=== PATIENT | female | born 1950 | race Caucasian/White ===

== ENCOUNTER 2016-09-03 10:50 | Emergency (ER) | payer OTHER ==
[~2016-09-03] VITALS: Ht 162.6 cm; Wt 62.0 kg
[~2016-09-03 10:50] MED LIST: ATOR40TA49 PO
[2016-09-03 10:56] VITALS: BP 124/69; PULSE 90; RESP 20; TEMP 98; O2SAT 94
[2016-09-03] MEDS ORDERED: AMOXICILLIN/CLAVULANATE K 875 MG TAB PO ONE (13:00)
[2016-09-03] MEDS ORDERED: LIDOCAINE 1%/EPINEPHrine 1:100,000 SOLN 20 ML VIAL INFIL ONE (13:00)
[2016-09-03] MEDS ORDERED: TETANUS/DIPHTHERIA TOXOID ADULT 0.5 ML VIAL IM ONE (13:00)
--- NOTE | 2016-09-03 13:05 | PD ---
HPI Chief Complaint: Bite or Sting Time Seen by Provider: 13:02 Travel History International Travel<30 days: No Contact w/Intl Traveler<30days: No Traveled to known affect area: No History of Present Illness HPI Patient is a 64-year-old female who presented to emergency department for evaluation of dog bite. Patient states she was playing with her dog this morning when she bent down to spanish moss picker his toy and he bit her. Patient has puncture wounds to her right forearm, her left forearm and her left bicep. His uncertain when her last tetanus vaccination was. She denies any significant pain. [facility] Past Medical History High Cholesterol: Yes Social History Alcohol Use: No Tobacco Use: Yes Substance Use: No Allergies-Medications (Allergen,Severity, Reaction): Coded Allergies: Novocain (Verified Allergy, Severe, Sedation, 09/03/16) Reported Meds & Prescriptions Reported Meds & Active Scripts Active Lipitor 40 Mg Tab (Atorvastatin Calcium) 40 Mg Tab 40 Mg PO DAILY Review of Systems Except as stated in HPI: all other systems reviewed are Neg Musculoskeletal: Positive: Myalgias Skin: Positive Other (puncture wounds and skin avulsion secondary to dog bite) Physical Exam Narrative GENERAL: Well-developed, well-nourished, alert female. Resting comfortably in no acute distress. SKIN: Warm and dry. 3 cm laceration to the left bicep just proximal to the elbow, 3 superficial skin tears to the left forearm, skin tears noted to the right forearm, there are 2 puncture wounds noted to the right forearm anteriorly and posteriorly. Puncture wound noted to the left forearm. Positive radial pulses bilaterally brisk less than 3 second capillary refill. HEAD: Normocephalic. Atraumatic EYES: No scleral icterus. No injection or drainage. NECK: Supple, trachea midline. No JVD or lymphadenopathy. CARDIOVASCULAR: Regular rate and rhythm without murmurs, gallops, or rubs. RESPIRATORY: Breath sounds equal bilaterally. No accessory muscle use. GASTROINTESTINAL: Abdomen soft, non-tender, nondistended. MUSCULOSKELETAL: No cyanosis, or edema. 5/5 muscle strength in bilateral upper extremities. Patient is neurologically and neurovascularly intact. BACK: Nontender without obvious deformity. No CVA tenderness. Data Data Last Documented VS Vital Signs Date Time Temp Pulse Resp B/P Pulse Ox O2 Delivery O2 Flow Rate FiO2 09/03/16 10:56 98.0 90 20 124/69 94 Room Air Orders Forearm (2vws) (09/03/16 ) Forearm (2vws) (09/03/16 ) Tetanus/Diphtheria Tox Adult (Tetanus/Di (09/03/16 13:00) Amoxicil-Clavulanate (Augmentin) (09/03/16 13:00) Lidocai-Epi 1%-1:100,000 Inj (Xylocaine- (09/03/16 13:00) MDM Medical Decision Making Medical Screen Exam Complete: Yes Emergency Medical Condition: Yes Interpretation(s) Vital Signs Date Time Temp Pulse Resp B/P Pulse Ox O2 Delivery O2 Flow Rate FiO2 09/03/16 10:56 98.0 90 20 124/69 94 Room Air Differential Diagnosis Puncture wound versus retained foreign body versus laceration versus abrasion versus skin avulsion versus fracture versus other Narrative Course Patient is a 65-year-old female who presented to emergency department for evaluation after she was bit by her dog at home this afternoon. This vaccination was updated, imaging was ordered to rule out retained foreign object /fracture. Patient was given first dose of Augmentin in the emergency department. Please see procedure report for laceration repair. Patient tolerated well. She is neurovascularly intact. Skin avulsions were cleaned with normal saline and Betadine, covered with nonadherent dressing. Patient was educated on wound care for home. She was advised that she would need to complete a 10 day course of oral antibiotics prevent infection. She was advised to follow-up with her primary doctor or return to the emergency department for any new or worsening symptoms. Patient verbalizes understanding of these instructions. Patient is stable for discharge. Procedures Procedure Narrative LACERATION LOCATION: Left bicep just proximal to the elbow LENGTH: 3 cm NUMBER OF STITCHES/PAULINE: 9 stitches REPAIR: The area of the laceration was prepped with Betadine and sterilely draped. The laceration was infiltrated with 1% Xylocaine. The wound was copiously irrigated and explored without evidence of foreign body, tendon injury or neurovascular injury. The wound was closed using 4-0 Prolene. This was a 1 layer repair. A sterile dressing was applied. The patient was advised to keep the dressing clean and dry. Patient tolerated the procedure well. LACERATION LOCATION: Left forearm LENGTH: 2 puncture wounds approximately half a centimeter wide NUMBER OF STITCHES/PAULINE: Close each puncture wound REPAIR: The area of the laceration was prepped with Betadine and sterilely draped. The laceration was infiltrated with 1% Xylocaine. The wound was copiously irrigated and explored without evidence of foreign body, tendon injury or neurovascular injury. The wound was closed using 4-0 Prolene. This was a 1 layer repair. A sterile dressing was applied. The patient was advised to keep the dressing clean and dry. Patient tolerated the procedure well. Diagnosis Primary Impression: Dog bite Qualified Code: W54.0XXA - Dog bite, initial encounter Additional Impressions: Laceration Puncture wound Encounter for vaccination Referrals: Primary Care Physician Patient Instructions: Animal Bite (ED), Care For Your Stitches (GEN), General Instructions, Stitches Removal (ED) Additional Instructions: Complete full course of antibiotics as directed Keep wounds clean and dry, covered with nonadherent dressing and topical antibiotic ointment Follow-up with your primary doctor Return to emergency department for any new or worsening symptoms Med/Other Pt SpecificInfo: Prescription(s) given Scripts Oxycodone-Acetaminophen (Percocet)5-325 mg Tab1 Tab PO Q6H PRN (PAIN) #12 TAB Ref 0 Prov:Sona Dodge 09/03/16 Amoxicillin-Clavulanate (Augmentin)875-125 mg [id number] Mg PO BID 10 Days Ref 0 not for use in CrCl <30 ml/min. Prov:Sona Dodge 09/03/16 Disposition: 01 DISCHARGE HOME Condition: Stable Sona Dodge Sep 03, 2016 13:04
--- NOTE | 2016-09-03 14:32 | RADRPT ---
EXAM DATE/TIME: 09/03/2016 13:34 [facility] COMPARISON: No previous studies available for comparison. INDICATIONS : Right forearm dog bites. MEDICAL HISTORY : None. SURGICAL HISTORY : None. ENCOUNTER: Initial ACUITY: 1 day PAIN SCORE: 3/10 LOCATION: Right forearm. FINDINGS: Two view examination of the right forearm demonstrates no evidence of fracture or dislocation. Bony mineralization is normal. CONCLUSION: No acute findings. Specifically no radiopaque foreign bodies. Owen Barlow MD on September 03, 2016 at 14:27 Board Certified Radiologist. This report was verified electronically.
--- NOTE | 2016-09-03 14:34 | RADRPT ---
EXAM DATE/TIME: 09/03/2016 13:37 [facility] COMPARISON: No previous studies available for comparison. INDICATIONS : Left forearm dog bites today. MEDICAL HISTORY : None. SURGICAL HISTORY : None. ENCOUNTER: Initial ACUITY: 1 day PAIN SCORE: 3/10 LOCATION: Left forearm. FINDINGS: Two view examination of the left forearm demonstrates no evidence of fracture or dislocation. Bony m ineralization is normal. CONCLUSION: 1. No acute findings. No radiopaque foreign bodies. Owen Barlow MD on September 03, 2016 at 14:31 Board Certified Radiologist. This report was verified electronically.
[2016-09-03] MEDS ORDERED: AUGM875T PO (14:50)
[2016-09-03] MEDS ORDERED: PERC5TAB12 PO ×2 (14:50→14:51)
== END 2016-09-03 15:05 | disposition home or self-care (01) ==
LOC: NEPB 10:50
DX: S41.112A Laceration without foreign body of left upper arm, initial encounter (principal); S51.851A Open bite of right forearm, initial encounter; S51.852A Open bite of left forearm, initial encounter; S41.152A Open bite of left upper arm, initial encounter; S51.812A Laceration without foreign body of left forearm, initial encounter; S51.831A Puncture wound without foreign body of right forearm, initial encounter; S51.832A Puncture wound without foreign body of left forearm, initial encounter; W54.0XXA Bitten by dog, initial encounter; Y93.89 Activity, other specified; E78.00 Pure hypercholesterolemia, unspecified; Z23 Encounter for immunization; Z72.0 Tobacco use
CPT/HCPCS: 12002; 73090; 90471; 90714